=== PATIENT | female | born 1930 | race Caucasian/White ===

== ENCOUNTER 2019-09-29 06:11 | Day surgery (SDC) | payer MEDICARE ==
[~2019-09-29] VITALS: Ht 152.4 cm; Wt 52.0 kg
[~2019-09-29 06:11] MED LIST: ACET500 PO; ACYC800 PO; ALEN35 PO; AMIT25 PO; ASCO500 PO; ASPI81CH PO; ASPI81EC PO; ATOR40TA PO; CALCAVITD PO; CALCIUM 600 +1 EA11 PO; CEPH500 PO; CHOL10002 PO; CLOP75 PO; CRANBERRY450 MG PO; Cayenne450 MG PO; DIGESTIVE ENZY1 EACH PO; DOCU100 PO; ETOD400 PO; FERR325 PO; FLUT.05NI; FLUT110OIA INH; FORTICAL; Flonase 0.05% N16 GM; GABA100 PO; GABA300 PO; LACT10SY PO; LATA.005SO BOTHEYES; LEVSOD100 PO; LEVSOD75 PO; LISI10 PO; LISI5 PO; LOVAZA1 GM PO; Lovastatin20 MG PO; MACULAR VITAMI1 EACH PO; METO25 PO; METO25ER PO; METR500 PO; NORT25 PO; OMEP20ER PO; OXYB5 PO; POTA10T PO; PRAV40 PO; PROM25 PO; PROP30DR BOTHEYES; RANI150 PO; SERT100 PO; SULTRIDS PO; [UNRECOGNIZED DRUG - OTHER] PO
--- NOTE | 2019-09-29 09:51 | NUR ---
PT SITTING UP IN RECLINER FINISHING BREAKFAST WITH CALL LIGHT IN REACH. PT DENIES CHEST PAIN, OR ANY PAIN. RIGHT ULNAR SITE SOFT NON-TENDER WITH NO HEMATOMA AND NO PULSATILE BLEEDING AND WRIST BOARD IN PLACE.
--- NOTE | 2019-09-29 11:06 | NUR ---
FULL REPORT PROVIDED JAVON HOFFMANN FROM [facility] TO ASSUME CARE OF PT AFTER TRANSFER TO ROOM 360.
--- NOTE | 2019-09-29 11:20 | NUR ---
14 CC OF AIR REMOVED OVER 15 MIN FROM NOW DEFLATED RIGHT ULNAR TR BAND - NO HEMATOMA,NO PULSATILE BLEEDING SOFT NON-TENDER.
--- NOTE | 2019-09-29 11:29 | NUR ---
NO CHANGES TO RIGHT ULNAR DEFLATED TR BAND SITE - NO HEMATOMA, NO BLEEDING.
--- NOTE | 2019-09-29 12:16 | NUR ---
RIGHT ULNAR SITE SOFT NON-TENDER WITH NO HEMATOMA AND NO PULSATILBE BLEEDING. DEFLATED RIGHT TR BAND REMOVED AND POLYMEM PLACED OVER RIGHT ULNAR SITE WITH WRIST BOARD IN PLACE. PT EATING SOME CHEESE AND SANDWICH.
--- NOTE | 2019-09-29 12:44 | NUR ---
FULL REPORT PROVIDED MEAD CREW TO TRANSPORT PT TO [facility]. NO CHANGES TO RIGHT ULNAR SITE - WRIST BOARD IN PLACE.
== END 2019-09-29 12:45 | disposition short-term general hospital (02) ==
LOC: MHTC 06:11
PROC: B201YZZ Plain Radiography of Multiple Coronary Arteries using Other Contrast (ICD-10-PCS; principal; 2019-09-29)
PROC: 4A023N7 Measurement of Cardiac Sampling and Pressure, Left Heart, Percutaneous Approach (ICD-10-PCS; principal; 2019-09-29)
DX: I25.110 Atherosclerotic heart disease of native coronary artery with unstable angina pectoris (principal); I10 Essential (primary) hypertension; F32.9 Major depressive disorder, single episode, unspecified; E03.9 Hypothyroidism, unspecified; F17.210 Nicotine dependence, cigarettes, uncomplicated; Z79.82 Long term (current) use of aspirin; Z95.5 Presence of coronary angioplasty implant and graft; Z79.899 Other long term (current) drug therapy
CPT/HCPCS: 76937; 85347; 93458; 99152; 99153; C1769; C1894; J1644; J2250; J3010; J7030; Q9967

== ENCOUNTER 2019-10-07 18:43 | Inpatient (IN) | payer MEDICARE ==
[~2019-10-07] VITALS: Ht 152.4 cm; Wt 53.5 kg
[~2019-10-07 18:43] MED LIST changes: -ASCO500 PO; -Lovastatin20 MG PO; -METO25 PO
[2019-10-07] MEDS ORDERED: ACET325 PO (19:50)
[2019-10-07] MEDS ORDERED: AMLO10 PO (19:50)
[2019-10-07] MEDS ORDERED: HYDRA25 PO (19:50)
[2019-10-07] MEDS ORDERED: Plavix75 MG PO (19:51)
[2019-10-07] MEDS ORDERED: ATOR40TA PO (19:51)
[2019-10-07] MEDS ORDERED: LEVSOD75 PO (19:51)
[2019-10-07] MEDS ORDERED: CARV25 PO (19:51)
[2019-10-07] MEDS ORDERED: Aspir 8181 MG PO (19:51)
[2019-10-07] MEDS ORDERED: LATA.005SO BOTHEYES (19:52)
[2019-10-07 20:04] LABS: BASOPHILS ABSOLUTE AUTO 0.03 K/mm3 (0.00-0.23); BASOPHILS PERCENT AUTO 0 % (0-2); EOSINOPHILS ABSOLUTE AUTO 0.11 K/mm3 (0.00-0.68); EOSINOPHILS PERCENT AUTO 1 % (0-6); Hematocrit 31.6 % (33.0-51.0); Hemoglobin 9.7 g/dL (11.5-16.0); IMMATURE GRAN ABSOLUTE AUTO 0.09 K/mm3 (0.00-0.10); IMMATURE GRAN PERCENT AUTO 1 % (0-1); LYMPHOCYTES ABSOLUTE AUTO 1.08 K/mm3 (0.84-5.20); LYMPHOCYTES PERCENT AUTO 8 % (21-46); MONOCYTES PERCENT AUTO 7 % (4-13); Mean Corpuscular HGB 28.9 pg (26.0-34.0); Mean Corpuscular HGB Conc 30.7 g/dL (31.5-36.5); Mean Corpuscular Volume 94 fL (80-100); Mean Platelet Volume 10.6 fL (9.1-12.4); NEUTROPHILS ABSOLUTE AUTO 11.57 K/mm3 (1.96-9.15); NEUTROPHILS PERCENT AUTO 84 % (41-73); Platelet Count 373 K/mm3 (150-400); RDW Coefficient Variation 15.9 % (11.7-14.2); RDW Standard Deviation 54.4 fL (35.1-46.3); Red Blood Cell Count 3.36 M/mm3 (3.80-5.20); White Blood Cell Count 13.78 K/mm3 (4.00-11.30)
[2019-10-07] MEDS ORDERED: Prinivil10 MG PO (20:20)
[2019-10-07] MEDS ORDERED: METO25 PO (20:21)
[2019-10-07] MEDS ORDERED: Lovastatin20 MG PO (20:21)
[2019-10-07 20:27] LABS: Albumin/Globulin Ratio 0.7 (0.8-1.8); Bilirubin, Total 0.3 mg/dL (0.1-1.0); Bun/Creatinine Ratio 26.3 (12.0-20.0); Calcium, Blood 9.7 mg/dL (8.5-10.1); Creatinine, Blood 1.52 mg/dL (0.40-1.00); Globulin, Blood 4.5 g/dL (2.2-4.0); Potassium, Blood 5.3 mmol/L (3.5-5.5); Total Protein, Blood 7.5 g/dL (6.4-8.2)
[2019-10-07 20:39] LABS: Troponin I 20.1 ng/mL (0.000-0.040)
[2019-10-07 22:19] LABS: Creatine Kinase MB 2.3 ng/mL (0.0-3.6)
[2019-10-07 23:04] LABS: Percent Saturation 12.1 % (15.0-50.0)
--- NOTE | 2019-10-07 23:30 | NUR ---
PT TO ICU 4 VIA GURNEY WITH [facility] RN, PT ALERT AND ORIENTED TO SELF, LOCATION, EVENT AND FOLLOWING DIRECTIONS. O2 SATURATIONS >93% ON 3L PER NC, PT ON RA AT HOME. MONITOR SHOWS SINUS GABBY, HR 38-50'S, PT DENIES CP AND SOB. TR BAND TO R ULNAR, SITE SOFT, NONTENDER, GOOD CAP REFILL IN DISTAL EXTREMITY, NO BLEEDING OR HEMATOMA NOTED. PT RECEIVED PLAVIX AND ASPIRIN PER EXEC. CREATIVE DIRECTOR REPORT, HEPARIN SC ADMINISTERED. PREVIOUS ANGIOGRAM ACCESS SITE TO R GROIN, SIGNIFICANT BRUISING NOTED, SMALL HEMATOMA AT INSERTION SITE, NON TENDER, DR FLEMING AWARE. DR BARAJAS IN TO SEE PT, SEE NEW ORDERS, NOTIFIED OF HR, PT ASYMPTOMATIC, DR BARAJAS REPORTED CHANGE IN DOSAGE TO HOME MEDICATIONS TO IMPROVE HR, CODE STATUS DISCUSSESD WITH PT, ORDER UPDATED AND DNR BAND PLACED. PT UP TO BSC, 1 PERSON ASSIST, DENIES DIZZINESS OR SOB. HISTORY OF CURRENT ILLNESS PT AND SON (FANNY) REPORT THAT PT WAS SENT TO [facility] APPROX 1 WEEK AGO, STENTS PLACED AT THAT TIME. SINCE DISCHARGE FROM [facility] ON 10/02, PT HAS HAD EXTREME SOB WITH EXERTION MAKING IT DIFFICULT TO GET AROUND HER HOME. PT HAS A LIST OF HOME MEDICATIONS, HAS DIFFICULTY IDENTIFYING WHEN SHE TAKES EACH MEDICATION, BUT STS SHE TAKES THEM DAILY.
[2019-10-07] MEDS ORDERED: Oyster Shell C500 MG PO (23:39)
[2019-10-07] MEDS ORDERED: ASCO500 PO (23:39)
[2019-10-07] MEDS ORDERED: EYE BOTHEYES (23:40)
[2019-10-08 03:15] LABS: BASOPHILS ABSOLUTE AUTO 0.04 K/mm3 (0.00-0.23); BASOPHILS PERCENT AUTO 0 % (0-2); EOSINOPHILS ABSOLUTE AUTO 0.12 K/mm3 (0.00-0.68); EOSINOPHILS PERCENT AUTO 1 % (0-6); Hematocrit 26.6 % (33.0-51.0); Hemoglobin 8.2 g/dL (11.5-16.0); IMMATURE GRAN ABSOLUTE AUTO 0.04 K/mm3 (0.00-0.10); IMMATURE GRAN PERCENT AUTO 0 % (0-1); LYMPHOCYTES ABSOLUTE AUTO 1.34 K/mm3 (0.84-5.20); LYMPHOCYTES PERCENT AUTO 13 % (21-46); MONOCYTES ABSOLUTE AUTO 0.89 K/mm3 (0.16-1.47); MONOCYTES PERCENT AUTO 8 % (4-13); Mean Corpuscular HGB 28.8 pg (26.0-34.0); Mean Corpuscular HGB Conc 30.8 g/dL (31.5-36.5); Mean Corpuscular Volume 93 fL (80-100); Mean Platelet Volume 10.6 fL (9.1-12.4); NEUTROPHILS ABSOLUTE AUTO 8.26 K/mm3 (1.96-9.15); NEUTROPHILS PERCENT AUTO 77 % (41-73); Platelet Count 319 K/mm3 (150-400); RDW Coefficient Variation 15.8 % (11.7-14.2); RDW Standard Deviation 53.8 fL (35.1-46.3); Red Blood Cell Count 2.85 M/mm3 (3.80-5.20); White Blood Cell Count 10.69 K/mm3 (4.00-11.30)
[2019-10-08 03:31] LABS: Bun/Creatinine Ratio 30.1 (12.0-20.0); Calcium, Blood 8.9 mg/dL (8.5-10.1); Creatinine, Blood 1.46 mg/dL (0.40-1.00)
--- NOTE | 2019-10-08 05:39 | NUR ---
SHIFT SUMMARY NO ACUTE CHANGES T/O NIGHT. PT RESTED, AROUSES TO VERBAL SITMULI, ALERT AND ORIENTED TO SELF, PLACE, EVENT AND FOLLOWING DIRECTIONS. R ULNAR SITE REMAINS SOFT AND NONTENDER, SMALL HEMATOMA NOTED AT INSERTION SITE WHEN TR BAND WAS REMOVED, WRIST IMMOBILIZER IN PLACE. PT REMAINS BRADYCARDIC, HR 30'S-50'S, PT DENIES CP. PT UP TO BSC, SIGNIFICANT SOB NOTED W/O DECREASE IN O2 SATURATIONS, NOT ABLE TO SPEAK IN FULL SENTENCES, VERY SLOW TO RECOVER, PRN BREATHING TREATMENT CURRENTLY BEING ADMINISTERED. R GROIN SITE REMAINS UNCHANGED. PT CALM AND COOPERATIVE, CALL LIGHT WITHIN REACH.
--- NOTE | 2019-10-08 10:00 | NUR ---
CARE ASSUMED REPORT RECEIVED, CARE ASSUMED AT 0700 FROM AJVON TORRES. PT ASLEEP, AROUSES EASILY FOR ASSESSMENT. VITALS STABLE. PT TITRATED TO 1 LPM NASAL CANNULA FOR SAT IN 90'S. PT DOES GET SHORT OF BREATH WITH TALKING AND ANY MOVEMENTS. HR 40'S. PT DENIES CHEST PAIN OR DIZZINESS. SEE SHIFT ASSESSMENT. PT TO CT AND BACK TO ROOM TO RULE OUT BLEED PT'S H&H DROPPING. NO NEW SIGNS OF BLEEDING. PT ALSO WORKED WITH PHYSICAL THERAPY THIS MORNING AND TOLERATES USING FWW TO STAND, TRANSFER AND WALK TO A RECLINER, BEDSIDE COMMODE AND BACK TO BED. PT HAS RECEIVED MULTIPLE PHONE CALLS FROM FAMILY, AND IS CALLING APPROPRIATELY FOR NEEDS.
--- NOTE | 2019-10-08 12:09 | NUR ---
UPDATE - RESPIRATORY STATUS OVER PREVIOUS HOUR, PT MUCH MORE SHORT OF BREATH AT REST. RR 24-28. 02 SAT 90'S ON 1 LPM. WHEEZING AUDIBLE WITHOUT AUSCULTATION, BUT LUNGS MOSTLY DIM THROUGHOUT. DR. ROGEL IN ROOM FOR ASSESSMENT. NEW ORDER FOR LASIX, CPAP/BIPAP PROTOCOL AND BALLESTEROS FOR STRICT I/O. PT REFUSING CPAP/BIPAP AT THIS TIME, BUT AGREES TO RESP TREATMENT BY DARIEL RT. REFUSES BALLESTEROS. PT ABLE TO TURN TO BE PLACED ON BEDPAN. LASIX GIVEN.
--- NOTE | 2019-10-08 13:08 | NUR ---
UPDATE PT PLACED ON M-SERIES BIPAP 08/11 BY RT DARIEL. AT THIS TIME, RESP RATE MUCH IMPROVED TO 16-20'S. PT CALM, DENIES SHORTNESS OF BREATH.
--- NOTE | 2019-10-08 14:16 | NUR ---
Echocardiogram using 0.45ml of Definity contrtast performed.
[2019-10-08 16:23] LABS: Hematocrit 27.6 % (33.0-51.0); Hemoglobin 8.6 g/dL (11.5-16.0)
--- NOTE | 2019-10-08 18:51 | NUR ---
SUMMARY SINCE PREVIOUS NOTE, PT HAS WORN BIPAP MAJORITY OF AFTERNOON. FIRST ATTEMPT AT BREAK DID NOT GO WELL WITH INCREASED RESPIRATORY RATE. HOWEVER, THIS EVENING PT OFF BIPAP FOR PAST HOUR AND ABLE TO DRINK AND EAT DINNER WITHOUT DIFFICULTY. PT STILL TACHYPNEIC WITH EXERTION BUT REPORTS FEELING BETTER THAN EARLIER. PT HAS HAD LARGE AMOUNT OF URINE OUTPUT, MOSTLY INCONTINENT. CONTINUES TO DECLINE INSERTION OF BALLESTEROS CATHETER. STILL NO BOWEL MOVEMENT TO SEND TO LAB. PT ABLE TO ASSIST WITH REPOSITIONING AND CHANGING. PT HAS NOT BEEN OUT OF BED AGAIN SINCE PT BECAME SO SHORT OF BREATH EARLY THIS AFTERNOON. BP STABLE. HR CONTINUES IN 50'S-60'S. PT AFEBRILE. PT CALLING APPROPRIATELY FOR NEEDS. SON AT BEDSIDE THIS EVENING.
--- NOTE | 2019-10-08 19:22 | NUR ---
REPORT TO JAVON TORRES TO ASSUME CARE
--- NOTE | 2019-10-08 20:30 | NUR ---
ASSUMPTION OF CARE ASSUMED CARE OF PT @ 1900, PT AWAKE IN BED, ALERT AND ORIENTED TO SELF, PLACE, EVENT, AND FOLLOWING DIRECTIONS. PT STS SHE FEELS MILDLY SOB, BUT IMPROVED FROM EARLIER IN THE DAY, PT ON 4L PER NC WITH OXYGEN SATURATIONS>95%. MONITOR SHOWS SINUS RHYTHM WITH HR 40'S-50'S, BP STABLE, DENIES CP. R ULNAR SITE C/D/I, SOFT AND NONTENDER, WRIST IMMOBILIZER IN PLACE. R GROIN SITE REMAINS UNCHANGED FROM PREVIOUS SHIFT. PT TOLERATING PO INTAKE, SWALLOWS PILLS WHOLE. PT UP TO BSC WITH SBA, NO INCREASE IN SOB, MODERATE WEAKNESS NOTED, OVERALL PT TOLERATED WELL. CALL LIGHT WITHIN REACH.
--- NOTE | 2019-10-09 05:29 | NUR ---
SHIFT SUMMARY PT SLEPT WELL T/O NIGHT, REMAINS ALERT AND ORIENTED WHILE AWAKE, PLEASANT AND COOPERATIVE. OXYGEN PER NC DECREASED TO 2L, ATTEMPTED RA AND O2 SATURATIONS DECREASED TO 87%. MONITOR SHOWS SINUS RHYTHM, HR IMPROVED TO 50-60'S BPM, BP STABLE. R ULNAR AND R GROIN SITE REMAIN STABLE. PT UP TO BSC x3 THIS SHIFT, STRENGTH SEEMS TO BE IMPROVING, SOB DECREASING, SOME INCONTINENT VOIDS IN ATTENDS. PT DENIES NEED FOR BM, STS DOES NOT FEEL CONSTIPATED, BUT STS SHE GENERALLY HAS BM EVERYDAY. PT VERBALIZES DESIRE TO BE DC'D HOME.
--- NOTE | 2019-10-09 07:08 | NUR ---
CARE ASSUMED REPORT RECEIVED, CARE ASSUMED AT 0700 FROM JAVON TORRES. PT UP TO BEDSIDE COMMODE AND TOLERATES WELL. SHORT OF BREATH WITH EXERTION AND WHEEZY BUT RECOVERS QUICKLY ON 2 LPM NASAL CANNULA ONCE BACK TO BED. PT DENIES CHEST PAIN OR DIZZINESS. VITALS STABLE. SEE SHIFT ASSESSMENT. PT AGREES TO CALL FOR NEEDS.
[2019-10-09 11:01] LABS: BASOPHILS ABSOLUTE AUTO 0.05 K/mm3 (0.00-0.23); BASOPHILS PERCENT AUTO 1 % (0-2); EOSINOPHILS ABSOLUTE AUTO 0.16 K/mm3 (0.00-0.68); EOSINOPHILS PERCENT AUTO 2 % (0-6); Hematocrit 27.2 % (33.0-51.0); Hemoglobin 8.7 g/dL (11.5-16.0); IMMATURE GRAN ABSOLUTE AUTO 0.05 K/mm3 (0.00-0.10); IMMATURE GRAN PERCENT AUTO 1 % (0-1); LYMPHOCYTES ABSOLUTE AUTO 1.47 K/mm3 (0.84-5.20); LYMPHOCYTES PERCENT AUTO 13 % (21-46); MONOCYTES ABSOLUTE AUTO 1.03 K/mm3 (0.16-1.47); MONOCYTES PERCENT AUTO 9 % (4-13); Mean Corpuscular HGB 29.4 pg (26.0-34.0); Mean Corpuscular Volume 92 fL (80-100); NEUTROPHILS ABSOLUTE AUTO 8.17 K/mm3 (1.96-9.15); NEUTROPHILS PERCENT AUTO 75 % (41-73); Platelet Count 356 K/mm3 (150-400); RDW Coefficient Variation 15.7 % (11.7-14.2); RDW Standard Deviation 52.3 fL (35.1-46.3); Red Blood Cell Count 2.96 M/mm3 (3.80-5.20); White Blood Cell Count 10.93 K/mm3 (4.00-11.30)
[2019-10-09 11:16] LABS: Bun/Creatinine Ratio 31.3 (12.0-20.0); Calcium, Blood 8.6 mg/dL (8.5-10.1); Creatinine, Blood 1.34 mg/dL (0.40-1.00); Potassium, Blood 4.1 mmol/L (3.5-5.5)
--- NOTE | 2019-10-09 17:05 | NUR ---
Per admit trigger, I met with Mrs. Thompson to offer spiritual/emotional support. She is non-sikh, but appeared to benefit from being heard and understood. She expressed frustration with chronic illness and says she is "tired of hospitals." She feels she is improving and will be able to return home soon. She has good family support and did not express concerns. I will remain available.
--- NOTE | 2019-10-09 18:52 | NUR ---
SUMMARY VITALS STABLE THROUGHOUT SHIFT. ABLE TO TITRATE PT TO ROOM AIR. PT HAS NOT REQUIRED BIPAP. PT HAS HAD ACTIVE DAY, WORKED WITH BOTH PT AND OT, AND HAS BEEN UP AND DOWN TO THE BEDSIDE COMMODE FREQUENTLY. PT HAS EATEN MAJORITY OF MEALS. CHANGED TO MEDICAL FLOOR WITH TELEMETRY STATUS. PT HAS CALLED APPROPRIATELY FOR NEEDS. SON AT BEDSIDE A FEW TIMES THROUGHOUT THE DAY, REQUESTING TO SPEAK WITH CASE MANAGEMENT TO DISCUSS ARRANGING A CAREGIVER FOR THE PATIENT AT HOME. OLAMIDE IN CASE MANAGEMENT UPDATED AND AGREEABLE TO BE IN COMMUNICATION WITH SON.
--- NOTE | 2019-10-09 19:28 | NUR ---
REPORT TO JOSE R, RN TO ASSUME CARE
--- NOTE | 2019-10-09 19:49 | NUR ---
ASSUME CARE PT IN BED, ALERT AND ORIENTED. VSS. GABBY IN 50S, BP WNL. AFEBRILE. PULSES PALPABLE THROUGHOUT. LUNGS CTAB. ON RA WITH SATS ABOVE 92%.
[2019-10-10 05:23] LABS: BASOPHILS ABSOLUTE AUTO 0.05 K/mm3 (0.00-0.23); BASOPHILS PERCENT AUTO 1 % (0-2); EOSINOPHILS PERCENT AUTO 4 % (0-6); Hematocrit 25.7 % (33.0-51.0); Hemoglobin 8.1 g/dL (11.5-16.0); IMMATURE GRAN ABSOLUTE AUTO 0.05 K/mm3 (0.00-0.10); IMMATURE GRAN PERCENT AUTO 1 % (0-1); LYMPHOCYTES ABSOLUTE AUTO 1.79 K/mm3 (0.84-5.20); LYMPHOCYTES PERCENT AUTO 21 % (21-46); MONOCYTES ABSOLUTE AUTO 0.79 K/mm3 (0.16-1.47); MONOCYTES PERCENT AUTO 9 % (4-13); Mean Corpuscular HGB 28.5 pg (26.0-34.0); Mean Corpuscular HGB Conc 31.5 g/dL (31.5-36.5); Mean Corpuscular Volume 91 fL (80-100); NEUTROPHILS ABSOLUTE AUTO 5.68 K/mm3 (1.96-9.15); NEUTROPHILS PERCENT AUTO 66 % (41-73); Platelet Count 355 K/mm3 (150-400); RDW Coefficient Variation 15.4 % (11.7-14.2); RDW Standard Deviation 50.6 fL (35.1-46.3); Red Blood Cell Count 2.84 M/mm3 (3.80-5.20); White Blood Cell Count 8.66 K/mm3 (4.00-11.30)
[2019-10-10 05:50] LABS: Bun/Creatinine Ratio 28.7 (12.0-20.0); Calcium, Blood 8.4 mg/dL (8.5-10.1); Creatinine, Blood 1.29 mg/dL (0.40-1.00); Potassium, Blood 4.3 mmol/L (3.5-5.5)
--- NOTE | 2019-10-10 07:29 | NUR ---
10/10/19 0600 HEART MONITOR STABLE AT SINUS GABBY IN HIGH 50'S TO SR IN THE 60'S. C/O SOB WITH WALKING TO BATHROOM BUT RESOLVES WITH REST. SLEPT ON AND OFF. RT THIGH BRUISING UNCHANGED FROM TIME OF TRANSFER. VITALS STABLE.
--- NOTE | 2019-10-10 18:01 | NUR ---
PT ALERT AND ORIENTED THROUGHOUT THIS SHIFT. PT WORKED WITH PT, WALKING IN THE CHAVES, THIS SHIFT. PT UP WITH STANDBY ASSIST TO THE BATHROOM. PT USES CALL LIGHT APPROPRIATELY. PT CURRENTLY EATING DINNER, NO FURTHER NEEDS AT THIS TIME.
[2019-10-11 03:49] LABS: Stool Occult Blood Guaiac 1 Pos (Neg)
--- NOTE | 2019-10-11 05:33 | NUR ---
10/11/19 0530 AWAKENED FOR VITALS AND AM MEDS. STATES SHE SLEPT BETTER LAST NIGHT. VITALS STABLE. DENIES SOB, OR OTHER PROBLEMS. REQUESTED COFFEE AND WATCHING TV NOW. RN ENCOURAGED PT TO DRINK MORE.
[2019-10-11 05:38] LABS: BASOPHILS ABSOLUTE AUTO 0.05 K/mm3 (0.00-0.23); BASOPHILS PERCENT AUTO 1 % (0-2); EOSINOPHILS ABSOLUTE AUTO 0.34 K/mm3 (0.00-0.68); EOSINOPHILS PERCENT AUTO 5 % (0-6); Hematocrit 25.8 % (33.0-51.0); Hemoglobin 8.2 g/dL (11.5-16.0); IMMATURE GRAN ABSOLUTE AUTO 0.04 K/mm3 (0.00-0.10); IMMATURE GRAN PERCENT AUTO 1 % (0-1); LYMPHOCYTES ABSOLUTE AUTO 1.61 K/mm3 (0.84-5.20); LYMPHOCYTES PERCENT AUTO 21 % (21-46); MONOCYTES ABSOLUTE AUTO 0.72 K/mm3 (0.16-1.47); MONOCYTES PERCENT AUTO 10 % (4-13); Mean Corpuscular HGB Conc 31.8 g/dL (31.5-36.5); Mean Corpuscular Volume 91 fL (80-100); Mean Platelet Volume 10.1 fL (9.1-12.4); NEUTROPHILS ABSOLUTE AUTO 4.78 K/mm3 (1.96-9.15); NEUTROPHILS PERCENT AUTO 63 % (41-73); Platelet Count 373 K/mm3 (150-400); RDW Coefficient Variation 15.3 % (11.7-14.2); RDW Standard Deviation 50.6 fL (35.1-46.3); Red Blood Cell Count 2.83 M/mm3 (3.80-5.20); White Blood Cell Count 7.54 K/mm3 (4.00-11.30)
[2019-10-11 06:02] LABS: Albumin, Blood 2.5 g/dL (3.4-5.0); Anion Gap 5 mmol/L (6-16); Blood Urea Nitrogen 32 mg/dL (8-24); Bun/Creatinine Ratio 25.4 (12.0-20.0); CO2, Blood 24 mmol/L (21-32); Calcium, Blood 8.6 mg/dL (8.5-10.1); Chloride, Blood 112 mmol/L (98-108); Creatinine, Blood 1.26 mg/dL (0.40-1.00); Glomerular Filtration Rate 43 (60-); Glucose, Blood 89 mg/dL (70-99); Phosphorus, Blood 3.1 mg/dL (2.5-4.9); Potassium, Blood 4.2 mmol/L (3.5-5.5); Sodium, Blood 141 mmol/L (136-145)
--- NOTE | 2019-10-11 16:25 | NUR ---
PT ALERT AND ORIENTED THROUGHOUT THIS SHIFT. PT WORKED WITH P/T AND OT THIS SHIFT. PT INDEPENDENT IN THE ROOM. PT RESTING IN BED FOR MOST OF THIS SHIFT. PT CURRENTLY RESTING IN BED AFTER WORKING WITH PT.
--- NOTE | 2019-10-12 04:58 | NUR ---
SHIFT SUMMARY PT HAD MOSTLY UNEVENTFUL NIGHT. PER REPORT PT'S TELE WAS D/C'D THE SHIFT PRIOR BUT THERE WAS NO ORDER TO D/C TELE AND NOTHING NOTED IN DOCTOR NOTES. TELE PLACED AGAIN ON PT. PT SBRADY W/ PAC'S AND BBB AT 53. NO S/S OF BLEEDING NOTED THROUGHOUT THE NIGHT. PT HAD NO COMPLAINTS OF PAIN OR SOB. ON RA. IV TO LEFT AC LEAKING SO THIS NURSE PLACED NEW IV IN LEFT FOREARM. OTHERWISE NO ACUTE CHANGES. VITAL SIGNS STABLE. WILL CONTINUE TO MONITOR.
[2019-10-12 05:34] LABS: BASOPHILS ABSOLUTE AUTO 0.04 K/mm3 (0.00-0.23); BASOPHILS PERCENT AUTO 1 % (0-2); EOSINOPHILS PERCENT AUTO 4 % (0-6); Hematocrit 26.5 % (33.0-51.0); Hemoglobin 8.3 g/dL (11.5-16.0); IMMATURE GRAN ABSOLUTE AUTO 0.04 K/mm3 (0.00-0.10); IMMATURE GRAN PERCENT AUTO 1 % (0-1); LYMPHOCYTES ABSOLUTE AUTO 1.83 K/mm3 (0.84-5.20); LYMPHOCYTES PERCENT AUTO 23 % (21-46); MONOCYTES ABSOLUTE AUTO 0.72 K/mm3 (0.16-1.47); MONOCYTES PERCENT AUTO 9 % (4-13); Mean Corpuscular HGB 28.3 pg (26.0-34.0); Mean Corpuscular HGB Conc 31.3 g/dL (31.5-36.5); Mean Corpuscular Volume 90 fL (80-100); Mean Platelet Volume 9.7 fL (9.1-12.4); NEUTROPHILS ABSOLUTE AUTO 4.89 K/mm3 (1.96-9.15); NEUTROPHILS PERCENT AUTO 63 % (41-73); Platelet Count 371 K/mm3 (150-400); RDW Coefficient Variation 15.5 % (11.7-14.2); RDW Standard Deviation 50.2 fL (35.1-46.3); Red Blood Cell Count 2.93 M/mm3 (3.80-5.20); White Blood Cell Count 7.82 K/mm3 (4.00-11.30)
[2019-10-12 05:57] LABS: Calcium, Blood 8.7 mg/dL (8.5-10.1); Creatinine, Blood 1.48 mg/dL (0.40-1.00); Potassium, Blood 4.3 mmol/L (3.5-5.5)
--- NOTE | 2019-10-12 16:03 | NUR ---
10/12/19 1603 Amada Weeks MAC CASE WITH DR. HAYDEN
--- NOTE | 2019-10-12 17:39 | NUR ---
Shift Summary A/Ox3, pleasant and cooperative. Pt had EGD this afternoon. SBA to bathroom, able to make needs known. Tele: SB 54. Both doses of Coreg was held today due to VS outside of parameters. Pt switched to Full liquid diet per Dr. Augustine. Denies pain and SOB. No signs of bleed, no bowel movement this shift. No acute concerns, will continue to monitor.
--- NOTE | 2019-10-13 04:28 | NUR ---
SHIFT SUMMARY PT HAS RESTED OFF AND ON THIS SHIFT. SHE HAS DENIED NEEDS FOR MOST OF THE NIGHT. NO S/S OF BLEEDING. PROTONIX GTT INFUSING. POST OP VITALS STABLE. PT OOB WITH 1 PA TO THE BATHROOM. STEADY ON FEET. PT HAS DENIED CHEST PAIN OR ANY DISCOMFORT. NO ACUTE CHANGES. BED IN LOWEST POSITION, CALL LIGHT WITHIN REACH. WILL CONTINUE TO MONITOR AND REPORT TO ONCOMING RN.
[2019-10-13 05:23] LABS: BASOPHILS ABSOLUTE AUTO 0.04 K/mm3 (0.00-0.23); BASOPHILS PERCENT AUTO 1 % (0-2); EOSINOPHILS ABSOLUTE AUTO 0.25 K/mm3 (0.00-0.68); EOSINOPHILS PERCENT AUTO 4 % (0-6); Hematocrit 28.1 % (33.0-51.0); Hemoglobin 8.9 g/dL (11.5-16.0); IMMATURE GRAN ABSOLUTE AUTO 0.04 K/mm3 (0.00-0.10); IMMATURE GRAN PERCENT AUTO 1 % (0-1); LYMPHOCYTES ABSOLUTE AUTO 1.62 K/mm3 (0.84-5.20); LYMPHOCYTES PERCENT AUTO 24 % (21-46); MONOCYTES ABSOLUTE AUTO 0.59 K/mm3 (0.16-1.47); MONOCYTES PERCENT AUTO 9 % (4-13); Mean Corpuscular HGB 28.6 pg (26.0-34.0); Mean Corpuscular HGB Conc 31.7 g/dL (31.5-36.5); Mean Corpuscular Volume 90 fL (80-100); Mean Platelet Volume 9.5 fL (9.1-12.4); NEUTROPHILS ABSOLUTE AUTO 4.16 K/mm3 (1.96-9.15); NEUTROPHILS PERCENT AUTO 62 % (41-73); Platelet Count 381 K/mm3 (150-400); RDW Coefficient Variation 15.3 % (11.7-14.2); Red Blood Cell Count 3.11 M/mm3 (3.80-5.20)
[2019-10-13 05:50] LABS: Albumin, Blood 2.7 g/dL (3.4-5.0); Anion Gap 6 mmol/L (6-16); Blood Urea Nitrogen 25 mg/dL (8-24); Bun/Creatinine Ratio 20.8 (12.0-20.0); CO2, Blood 24 mmol/L (21-32); Calcium, Blood 8.7 mg/dL (8.5-10.1); Chloride, Blood 112 mmol/L (98-108); Glomerular Filtration Rate 45 (60-); Glucose, Blood 84 mg/dL (70-99); Phosphorus, Blood 2.9 mg/dL (2.5-4.9); Potassium, Blood 4.4 mmol/L (3.5-5.5); Sodium, Blood 142 mmol/L (136-145)
[2019-10-13] MEDS ORDERED: CARV3.125 PO (14:20)
[2019-10-13] MEDS ORDERED: FERSU300 PO (14:21)
[2019-10-13] MEDS ORDERED: PANT40 PO (14:22)
[2019-10-13] MEDS ORDERED: FURO40 PO (14:23)
--- NOTE | 2019-10-13 15:42 | NUR ---
Discharge Summary A/Ox3, patient had no signs of bleeding, denies SOB, pain, dyspnea. SBA in room, assisted with dressing. Discharging to home, personal vehicle as transportation home, escorted out by PHARMACY CARE COORDINATOR via w/c. Discharge instructions reviewed with patient and friend at bedside. Meds faxed to [facility]. IVs removed, both WNL. Patient had no questions at this time. Personal belongings bagged by patient and friend, sent home with patient. Tele removed and sent back to PCU.
== END 2019-10-13 15:45 | disposition home or self-care (01) | DRG 280 ==
LOC: ER 18:43 → ICUE 19:45 → ICUW 19:45 → MEDS 19:45 → ICUE 20:54 → MEDS 10-09 23:13
PROVIDERS: Internal Medicine; Internal Medicine Gastroenterology; Internal Medicine Interventional Cardiology; Physician Assistant; ADMIT Family Medicine
PROC: 4A023N7 Measurement of Cardiac Sampling and Pressure, Left Heart, Percutaneous Approach (ICD-10-PCS; principal; 2019-10-07)
PROC: B2011ZZ Plain Radiography of Multiple Coronary Arteries using Low Osmolar Contrast (ICD-10-PCS; 2019-10-07)
PROC: 0W3P8ZZ Control Bleeding in Gastrointestinal Tract, Via Natural or Artificial Opening Endoscopic (ICD-10-PCS; 2019-10-12)
DX: I21.4 Non-ST elevation (NSTEMI) myocardial infarction (principal); J96.01 Acute respiratory failure with hypoxia; I50.31 Acute diastolic (congestive) heart failure; K55.21 Angiodysplasia of colon with hemorrhage; N17.9 Acute kidney failure, unspecified; J44.1 Chronic obstructive pulmonary disease with (acute) exacerbation; I13.0 Hypertensive heart and chronic kidney disease with heart failure and stage 1 through stage 4 chronic kidney disease, or unspecified chronic kidney disease; Z79.02 Long term (current) use of antithrombotics/antiplatelets; Z87.891 Personal history of nicotine dependence; N18.3 Chronic kidney disease, stage 3 (moderate); I25.10 Atherosclerotic heart disease of native coronary artery without angina pectoris; H40.9 Unspecified glaucoma
CPT/HCPCS: 36415; 71045; 74176; 76937; 80048; 80053; 80069; 82272; 82550; 82553; 82607; 82728; 82746; 83540; 83550; 83880; 84145; 84484; 85014; 85018; 85025; 85347; 93005; 93010; 93458; 94640; 94660; 94760; 97110; 97112; 97116; 97162; 97166; 97530; 97535; 99152; 99153; 99285-25; C1769; C1887; C1894; C8929; C9113; J0456; J0696; J1644; J1940; J2704; J7030; J7050; J7120; Q9957; Q9967

== ENCOUNTER → 2019-10-30 | Outpatient (CLI) | payer MEDICARE ==
[~2019-10-30] MED LIST changes: +ACET325 PO; +AMLO10 PO; +ASCO500 PO; +Aspir 8181 MG PO; +CARV25 PO; +CARV3.125 PO; +EYE BOTHEYES; +FERSU300 PO; +FURO40 PO; +HYDRA25 PO; +Lovastatin20 MG PO; +METO25 PO; +Oyster Shell C500 MG PO; +PANT40 PO; +Plavix75 MG PO; +Prinivil10 MG PO
[2019-10-30 19:08] LABS: BASOPHILS ABSOLUTE AUTO 0.06 K/mm3 (0.00-0.23); BASOPHILS PERCENT AUTO 1 % (0-2); EOSINOPHILS ABSOLUTE AUTO 0.34 K/mm3 (0.00-0.68); EOSINOPHILS PERCENT AUTO 5 % (0-6); Hematocrit 24.3 % (33.0-51.0); Hemoglobin 8.8 g/dL (11.5-16.0); IMMATURE GRAN ABSOLUTE AUTO 0.03 K/mm3 (0.00-0.10); IMMATURE GRAN PERCENT AUTO 1 % (0-1); LYMPHOCYTES ABSOLUTE AUTO 1.48 K/mm3 (0.84-5.20); LYMPHOCYTES PERCENT AUTO 23 % (21-46); MONOCYTES PERCENT AUTO 8 % (4-13); Mean Corpuscular HGB 35.2 pg (26.0-34.0); Mean Corpuscular HGB Conc 36.2 g/dL (31.5-36.5); Mean Corpuscular Volume 97 fL (80-100); Mean Platelet Volume 10.3 fL (9.1-12.4); NEUTROPHILS ABSOLUTE AUTO 4.09 K/mm3 (1.96-9.15); NEUTROPHILS PERCENT AUTO 63 % (41-73); Platelet Count 300 K/mm3 (150-400); RDW Coefficient Variation 17.6 % (11.7-14.2); RDW Standard Deviation 60.8 fL (35.1-46.3)
== END ==
LOC: LAB SHORT 11:00
PROVIDERS: Physician Assistant
DX: D64.9 Anemia, unspecified (principal)
CPT/HCPCS: 36415; 85025

== ENCOUNTER 2019-11-13 15:44 | Emergency (ER) | payer MEDICARE ==
[~2019-11-13] VITALS: Ht 152.4 cm; Wt 49.9 kg
[2019-11-13 16:54] LABS: BASOPHILS ABSOLUTE AUTO 0.05 K/mm3 (0.00-0.23); BASOPHILS PERCENT AUTO 1 % (0-2); EOSINOPHILS ABSOLUTE AUTO 0.38 K/mm3 (0.00-0.68); EOSINOPHILS PERCENT AUTO 4 % (0-6); Hematocrit 24.9 % (33.0-51.0); Hemoglobin 7.8 g/dL (11.5-16.0); IMMATURE GRAN ABSOLUTE AUTO 0.04 K/mm3 (0.00-0.10); IMMATURE GRAN PERCENT AUTO 0 % (0-1); LYMPHOCYTES ABSOLUTE AUTO 1.44 K/mm3 (0.84-5.20); LYMPHOCYTES PERCENT AUTO 14 % (21-46); MONOCYTES ABSOLUTE AUTO 0.81 K/mm3 (0.16-1.47); MONOCYTES PERCENT AUTO 8 % (4-13); Mean Corpuscular HGB 29.5 pg (26.0-34.0); Mean Corpuscular HGB Conc 31.3 g/dL (31.5-36.5); Mean Corpuscular Volume 94 fL (80-100); Mean Platelet Volume 10.6 fL (9.1-12.4); NEUTROPHILS ABSOLUTE AUTO 7.26 K/mm3 (1.96-9.15); NEUTROPHILS PERCENT AUTO 73 % (41-73); Platelet Count 297 K/mm3 (150-400); RDW Coefficient Variation 15.9 % (11.7-14.2); RDW Standard Deviation 53.9 fL (35.1-46.3); Red Blood Cell Count 2.64 M/mm3 (3.80-5.20); White Blood Cell Count 9.98 K/mm3 (4.00-11.30)
[2019-11-13 16:56] LABS: Source, Urine Clean Catch
[2019-11-13 17:08] LABS: Bilirubin, Urine Neg (Neg); Blood, Urine 1+ (Neg); Glucose Qualitative, Urine Neg (Neg); Ketones, Urine Neg (Neg); Leukocyte Esterase, Urine 2+ (Neg); Nitrite, Urine Neg (Neg); Protein, Urine 2+ (Neg); Specific Gravity, Urine 1.015 (1.003-1.022); Urobilinogen, Urine NORM (Normal)
[2019-11-13 17:13] LABS: Albumin, Blood 3.2 g/dL (3.4-5.0); Albumin/Globulin Ratio 0.8 (0.8-1.8); Bilirubin, Total 0.2 mg/dL (0.1-1.0); Bun/Creatinine Ratio 30.1 (12.0-20.0); Calcium, Blood 8.9 mg/dL (8.5-10.1); Creatinine, Blood 1.56 mg/dL (0.40-1.00); Globulin, Blood 3.9 g/dL (2.2-4.0); Potassium, Blood 3.5 mmol/L (3.5-5.5); Total Protein, Blood 7.1 g/dL (6.4-8.2)
[2019-11-13 17:22] LABS: Appearance, Urine Hazy (Clear); Color, Urine Pale Yellow (P-Yellow)
[2019-11-13 17:23] LABS: Bacteria Few /hpf; Squamous Epithelial Cells Few /hpf (Few)
== END 2019-11-13 22:44 | disposition home or self-care (01) ==
LOC: ER 15:44
PROVIDERS: Physician Assistant
DX: D64.9 Anemia, unspecified (principal); N18.9 Chronic kidney disease, unspecified; K31.819 Angiodysplasia of stomach and duodenum without bleeding; I25.2 Old myocardial infarction; E03.9 Hypothyroidism, unspecified; F32.9 Major depressive disorder, single episode, unspecified; Z79.899 Other long term (current) drug therapy
CPT/HCPCS: 36415; 71045; 80053; 81001; 82272; 83690; 83880; 84484; 85025; 87077; 87086; 87186; 93005; 93010; 99284-25; J7030

== ENCOUNTER 2019-11-20 13:33 | Inpatient (IN) | payer MEDICARE, OTHER ==
[~2019-11-20] VITALS: Ht 152.4 cm; Wt 51.0 kg
[2019-11-20 14:19] LABS: Source, Urine Clean Catch
[2019-11-20 14:24] LABS: BASOPHILS ABSOLUTE AUTO 0.05 K/mm3 (0.00-0.23); BASOPHILS PERCENT AUTO 1 % (0-2); EOSINOPHILS ABSOLUTE AUTO 0.44 K/mm3 (0.00-0.68); EOSINOPHILS PERCENT AUTO 6 % (0-6); Hematocrit 28.1 % (33.0-51.0); Hemoglobin 8.4 g/dL (11.5-16.0); IMMATURE GRAN ABSOLUTE AUTO 0.12 K/mm3 (0.00-0.10); IMMATURE GRAN PERCENT AUTO 2 % (0-1); LYMPHOCYTES ABSOLUTE AUTO 1.56 K/mm3 (0.84-5.20); LYMPHOCYTES PERCENT AUTO 21 % (21-46); MONOCYTES ABSOLUTE AUTO 0.63 K/mm3 (0.16-1.47); MONOCYTES PERCENT AUTO 8 % (4-13); Mean Corpuscular HGB 29.1 pg (26.0-34.0); Mean Corpuscular HGB Conc 29.9 g/dL (31.5-36.5); Mean Corpuscular Volume 97 fL (80-100); NEUTROPHILS PERCENT AUTO 63 % (41-73); Platelet Count 363 K/mm3 (150-400); RDW Coefficient Variation 15.4 % (11.7-14.2); RDW Standard Deviation 54.4 fL (35.1-46.3); Red Blood Cell Count 2.89 M/mm3 (3.80-5.20)
[2019-11-20 14:30] LABS: International Normalized Ratio 1.05; Prothrombin Time Results 11.2 Sec (9.7-11.5)
[2019-11-20 14:32] LABS: Bilirubin, Urine Neg (Neg); Blood, Urine Neg (Neg); Glucose Qualitative, Urine Neg (Neg); Ketones, Urine Neg (Neg); Leukocyte Esterase, Urine Neg (Neg); Nitrite, Urine Neg (Neg); Protein, Urine 2+ (Neg); Specific Gravity, Urine 1.015 (1.003-1.022); Urobilinogen, Urine NORM (Normal)
[2019-11-20 14:47] LABS: Appearance, Urine Clear (Clear); Color, Urine Yellow (P-Yellow)
[2019-11-20 14:52] LABS: Red Blood Cells, Urine Not Seen /hpf (0-2)
[2019-11-20 14:53] LABS: Bacteria Few /hpf; Squamous Epithelial Cells Mod /hpf (Few)
[2019-11-20 14:54] LABS: White Blood Cells, Urine 0-2 /hpf (0-5)
[2019-11-20 16:15] LABS: Albumin, Blood 3.1 g/dL (3.4-5.0); Albumin/Globulin Ratio 0.9 (0.8-1.8); Bilirubin, Total 0.2 mg/dL (0.1-1.0); Bun/Creatinine Ratio 20.3 (12.0-20.0); Calcium, Blood 9.1 mg/dL (8.5-10.1); Creatinine, Blood 1.72 mg/dL (0.40-1.00); Globulin, Blood 3.5 g/dL (2.2-4.0); Potassium, Blood 5.2 mmol/L (3.5-5.5); Total Protein, Blood 6.6 g/dL (6.4-8.2)
[2019-11-20] MEDS ORDERED: HYDRA25 PO (16:24)
--- NOTE | 2019-11-20 19:00 | NUR ---
PT ARRIVES TO UNIT AT 1806 FROM ED VIA GURNEY. PT A&OX 4 ON ARRIVAL. ANSWERS QUESTIONS APPROPRIATELY. RECENT ADMIT FOR GI BLEED AND HX OF RECENT STENT PLACEMENT. PT STATES SHE WAS IN RADIOLOGY FOR U/S AND REFERRED TO ER FOR BRADYCARDIA. PT REPORTS INTERMITTANT ABD PAIN AND DARK STOOLS. STATES SHE THINKS THIS D/T IRON SUPPLEMENTS. PT P/W/D. HTN NOTED. PT HR 40'S, SB. PT DENIES CHEST PAIN OR SOB. WILL REPORT TO ONCOMING NURSE.
[2019-11-20 20:08] LABS: Hematocrit 30.4 % (33.0-51.0); Hemoglobin 8.9 g/dL (11.5-16.0)
--- NOTE | 2019-11-20 21:39 | NUR ---
ASSUMED CARE OF PT AT 1900. BEDSIDE REPORT PERFORMED. PT PARTICIPATED IN DISCUSION, IN PLEASANT MOOD. DISCUSSED PLAN OF CARE, UPDATING PATIENT. I TRACE PERFORMED, FLUIDS REDUCED TO KVO TO RUN WITH PROTONIX GTT. PT UP TO BEDSIDE COMMODE TWICE IN SHORT TIME, BLADDER SCAN PERFORMED. POST VOID RESIDUAL IS [phone].
--- NOTE | 2019-11-20 22:38 | NUR ---
SPOKE WITH DR. SPIVEY ABOUT PT'S CONTINUED LOW HEART RATE, AND HIGH SBP. ORDERS RECEIVED TO RESTART HOME HYDRALAZINE AND NORVASC, DOSE HYDRALAZINE TONIGHT, NORVASC TO START IN THE AM. UPDATED DR ON PT'S LAST TROPONIN, AND PT'S LACK OF ANY CHEST PAIN. RECEIVED ORDER TO MONITOR NEXT VALUE DRAWN.
[2019-11-21 02:00] LABS: BASOPHILS ABSOLUTE AUTO 0.05 K/mm3 (0.00-0.23); BASOPHILS PERCENT AUTO 1 % (0-2); EOSINOPHILS ABSOLUTE AUTO 0.37 K/mm3 (0.00-0.68); EOSINOPHILS PERCENT AUTO 5 % (0-6); Hematocrit 28.3 % (33.0-51.0); Hemoglobin 8.6 g/dL (11.5-16.0); IMMATURE GRAN ABSOLUTE AUTO 0.11 K/mm3 (0.00-0.10); IMMATURE GRAN PERCENT AUTO 1 % (0-1); LYMPHOCYTES ABSOLUTE AUTO 1.43 K/mm3 (0.84-5.20); LYMPHOCYTES PERCENT AUTO 17 % (21-46); MONOCYTES ABSOLUTE AUTO 0.61 K/mm3 (0.16-1.47); MONOCYTES PERCENT AUTO 7 % (4-13); Mean Corpuscular HGB 28.8 pg (26.0-34.0); Mean Corpuscular HGB Conc 30.4 g/dL (31.5-36.5); Mean Corpuscular Volume 95 fL (80-100); Mean Platelet Volume 9.7 fL (9.1-12.4); NEUTROPHILS ABSOLUTE AUTO 5.64 K/mm3 (1.96-9.15); NEUTROPHILS PERCENT AUTO 69 % (41-73); Platelet Count 339 K/mm3 (150-400); RDW Coefficient Variation 15.3 % (11.7-14.2); RDW Standard Deviation 52.8 fL (35.1-46.3); Red Blood Cell Count 2.99 M/mm3 (3.80-5.20); White Blood Cell Count 8.21 K/mm3 (4.00-11.30)
[2019-11-21 02:23] LABS: Albumin, Blood 2.9 g/dL (3.4-5.0); Anion Gap 6 mmol/L (6-16); Blood Urea Nitrogen 29 mg/dL (8-24); Bun/Creatinine Ratio 17.5 (12.0-20.0); CO2, Blood 24 mmol/L (21-32); Calcium, Blood 8.8 mg/dL (8.5-10.1); Chloride, Blood 112 mmol/L (98-108); Creatinine, Blood 1.66 mg/dL (0.40-1.00); Glomerular Filtration Rate 31 (60-); Glucose, Blood 82 mg/dL (70-99); Phosphorus, Blood 3.7 mg/dL (2.5-4.9); Potassium, Blood 4.8 mmol/L (3.5-5.5); Sodium, Blood 142 mmol/L (136-145)
[2019-11-21 02:25] LABS: Troponin I 0.745 ng/mL (0.000-0.040)
--- NOTE | 2019-11-21 05:52 | NUR ---
Pt up frequently to urinate, but has good output. Pt slept most of evening when care was not being performed. Pt is a standby assist to bedside commode, for line management.
--- NOTE | 2019-11-21 08:00 | NUR ---
Recieved report from Oniel ALEJANDRO. Patient resting in bed and awakens to verbal stimuli. She is on RA and sats mid 90%'s. Her HR SB 40's and has cardiology following her. She is asymptomatic and when getting up to bedside cammode denies and dizziness . She states has ongoing weakness for several days.She has 20ga RAC dressing intact and site WNL's and is infusing Protonixs at 1o ml/hr and NS TKO. She also has 22 ga IV in RW dressing intact and site WNL's and is flushed and SL'd.
[2019-11-21 09:05] LABS: Free Thyroxine 0.76 ng/dL (0.70-1.60)
[2019-11-21 09:07] LABS: Thyroid Stimulating Hormone 35.8 uIU/mL (0.360-4.800)
--- NOTE | 2019-11-21 09:30 | NUR ---
Dr wise here and writing new orders, added lasix and increased Hydralizine to 50mg TID. Patient still asymptomatic with Keith 40's and when getting up several times to cammode.
--- NOTE | 2019-11-21 11:30 | NUR ---
Dr. Thrasher by to see patient and talked about possible pacer for rates in the mid top upper 30's and will talk with Dr Valdez about placement.Systolic low 100' sand HR 35-42. She remains on RA and sats upper 90%'s. She has gotten up to chair for lunch and tolerated well without dizziness and when getting up to cammode.
--- NOTE | 2019-11-21 14:50 | NUR ---
Dr Sanford[ika has been by to consent for Pacer placement in am and started on heart healthy diet and NPO after midnight. Patient asked to go back to bed from [facility] and transfered with SBA. She tolerated abot 50% of diet and stated she was full. She remains on Protonixs.
--- NOTE | 2019-11-21 17:32 | NUR ---
Patient has been resting with intermitent trips to bedside [facility]. She received Chorehexidine bath for pacer in am. HR remains 35-45, sats upper 90% on RA and ssystolics 110-130's. She deneis any pain and or any current needs. She has tolerated Heart Healthy diet about 50%. Patient NPO after midnight and will have pacer placement in am. She continues to be PCU status.
--- NOTE | 2019-11-21 19:33 | NUR ---
CALL TO DR. BOBO: DO GIVE PT'S ASPIRIN TONIGHT.
--- NOTE | 2019-11-22 00:37 | NUR ---
START OF SHIFT NOTE: BEDSIDE REPORT FROM TOMMIE ALEJANDRO. PT A+O x4 AND WATCHING TV AT TIME OF REPORT. VSS. PT C/ HR 40'S-50'S AND HAS BEEN ASYMPTOMATIC DENYING DIZZINESS, SP, NOR SOB EVEN WHEN WITH GETTING UP TO THE BSC. PT AWAKENS EASILY TO RN TO BEDSIDE. PT USING CALL LIGHT APPROPRIATELY. WILL CONTINUE TO MONITOR. CALL LIGHT WITHIN REACH.
[2019-11-22 03:28] LABS: BASOPHILS ABSOLUTE AUTO 0.05 K/mm3 (0.00-0.23); BASOPHILS PERCENT AUTO 1 % (0-2); EOSINOPHILS ABSOLUTE AUTO 0.37 K/mm3 (0.00-0.68); EOSINOPHILS PERCENT AUTO 4 % (0-6); Hemoglobin 8.6 g/dL (11.5-16.0); IMMATURE GRAN ABSOLUTE AUTO 0.05 K/mm3 (0.00-0.10); IMMATURE GRAN PERCENT AUTO 1 % (0-1); LYMPHOCYTES ABSOLUTE AUTO 1.63 K/mm3 (0.84-5.20); LYMPHOCYTES PERCENT AUTO 19 % (21-46); MONOCYTES ABSOLUTE AUTO 0.62 K/mm3 (0.16-1.47); MONOCYTES PERCENT AUTO 7 % (4-13); Mean Corpuscular HGB 28.6 pg (26.0-34.0); Mean Corpuscular HGB Conc 30.7 g/dL (31.5-36.5); Mean Corpuscular Volume 93 fL (80-100); Mean Platelet Volume 9.6 fL (9.1-12.4); NEUTROPHILS ABSOLUTE AUTO 5.71 K/mm3 (1.96-9.15); NEUTROPHILS PERCENT AUTO 68 % (41-73); Platelet Count 320 K/mm3 (150-400); RDW Coefficient Variation 15.4 % (11.7-14.2); Red Blood Cell Count 3.01 M/mm3 (3.80-5.20); White Blood Cell Count 8.43 K/mm3 (4.00-11.30)
[2019-11-22 03:46] LABS: Bun/Creatinine Ratio 14.7 (12.0-20.0); Creatinine, Blood 2.17 mg/dL (0.40-1.00); Potassium, Blood 4.8 mmol/L (3.5-5.5)
--- NOTE | 2019-11-22 06:43 | NUR ---
END OF SHIFT: PT WITH NO EVENTS T/O NOC. VSS C/ BRADAYCARDIA CONTINUING OF HR 40'S-60'S. PT REMAINED ASYMPTOMATIC. ONLY C/O IS, "JUST GETTING IT OVER WITH" (RE: PACEMAKER PLACEMENT). PT USING CALL LIGHT APPROPRIATELY AND IS CONITNUING UP TO BSC W/O DIFFICULTY.
--- NOTE | 2019-11-22 07:51 | NUR ---
Received report from Dayana ALEJANDRO. Patient awake in bed with HOB at30 degrees playing games on her I pad. She is alert and oriented and is able to communicate her needs and denies any current pain. She is on RA and sats 98%. She ahs 2 IV's one 20ga RAC and the other 22ga RW and dressings intact and site WNL's. The 20ga RAC in infusning Protonixsat 10ml/hr and NS at TKO. She up to cammode with SBA and calls appropriately. She is been NPO since midnight and awaiting pacer placement this am.
--- NOTE | 2019-11-22 08:20 | NUR ---
Heart center her picking her up for procedure. VSS see EMR.
--- NOTE | 2019-11-22 12:54 | NUR ---
ASSUMED CARE / RETURN FROM HEART CENTER: REPORT RECEIVED FROM TOMMIE Cantrell RN. WILL ASSUME CARE OF THIS PT ONCE RETURNED FROM PACER PLACEMENT SURGERY. PT BACK TO ROOM AT APPROX 1120. SHE HAS RECEIVED A DUAL CHAMBER PACER & MONITOR IS CURRENTLY SHOWING A-PACED RHYTHM W/ RATE OF [address] TO L CHEST WALL & ARM SLING IN PLACE. PT HYPERTENSIVE ON ARRIVAL BUT BP HAS IMPROVED. PT SITTING UP IN BED TOLERATING PO INTAKE W/O DIFFICULTY. SHE HAS C/O PAIN TO SURGICAL SITE, TYLENOL PER EMAR & REST ENCOURAGED. WILL CALL PROVIDER FOR FURTHER ORDERS IF PAIN NOT RESOLVED.
--- NOTE | 2019-11-22 13:51 | NUR ---
DR CORDERO: THIS PROVIDER IS NOW COVERING THE PT's HOSPITALIST CARE. CONTACTED HIM REGARDING PT's C/O PAIN THAT TYLENOL IS NOT RELIEVED BY TYLENOL. HE STS HE WILL REVIEW THE CHART & PLACE ORDERS.
--- NOTE | 2019-11-22 17:05 | NUR ---
ASSUMED CARE OF PT AT 1543. A&O X 3, PLEASANT. PRESSURE DRESSING ON L UPPER CHEST IS INTACT, NO DRAINAGE; ARM IS IN SLING. STATED PAIN IS "OK LONG I DON'T MOVE IT." PACED RHYTHM. ON ROOM AIR, O2 SAT > 95%, LUNGS CLEAR. EDUCATED PT TO CALL FOR BRP, AND NOT TO USE L ARM AT ALL; VERBALIZED UNDERSTANDING.
--- NOTE | 2019-11-22 17:56 | NUR ---
SHIFT SUMMARY: PT A&O, PLEASANT. VSS, PACED RHYTHM, RATE 60. ON RA, O2 SAT 95%, NO COUGH. GETTING UP TO BSC WITH MAX ASSISTANCE. PRESSURE DRESSING REMAINS INTACT. C/O PAIN IN ADEEL CHEST; HAS FENTANYL AND TYLENOL ORDERED. PLAN IS POSSIBLE D/C HOME TOMORROW.
--- NOTE | 2019-11-22 23:02 | NUR ---
ASSUMED CARE OF PATIENT AT APPROXIMATELY 2004 FROM ROSELINE Sharma RN. PATIENT WAS RECENTLY TRANSFERRED FROM ICU. PATIENT ALERT AND ORIENTED X4; FORGETFUL AT TIMES; NEEDS REMINDED AT TIMES NOT TO USE LEFT ARM. PATIENT S/P PACEMAKER TODAY; SITE C/D/I; COVERED WITH GEORGES WRAP; SLING IN PLACE TO LEFT ARM. PATIENT DENIES PAIN, NUMBNESS, TINGLING, DIZZINESS OR NAUSEA. 100% PACED ON TELE; OXYGEN SATURATION ABOVE 90% ON ROOM AIR. CALL PLACED TO DR. MADDEN AT [facility] TO REQUEST DIET; PATIENT NPO SINCE DINNER FOR PACEMAKER; CARDIAC DIET STARTED. PATIENT WAS ALSO RECIEVING PROTONIX GTT; GI SIGNED OFF 11/20; ORDERS FOR HOME DOSE OF PROTONIX; PROTONIX GTT D/C'D. PATIENT ONE ASSIST TO BATHROOM TO URINATE. PATIENT CURRENTLY RESTING IN BED; CALL LIGHT IN REACH; BED IN LOWEST POSISTION; BED ALARM ON; WILL CONTINUE TO MONITOR AND ASSESS UNTIL END OF SHIFT.
[2019-11-23 04:02] LABS: BASOPHILS ABSOLUTE AUTO 0.05 K/mm3 (0.00-0.23); BASOPHILS PERCENT AUTO 1 % (0-2); EOSINOPHILS ABSOLUTE AUTO 0.41 K/mm3 (0.00-0.68); EOSINOPHILS PERCENT AUTO 4 % (0-6); Hematocrit 28.7 % (33.0-51.0); Hemoglobin 8.9 g/dL (11.5-16.0); IMMATURE GRAN ABSOLUTE AUTO 0.05 K/mm3 (0.00-0.10); IMMATURE GRAN PERCENT AUTO 1 % (0-1); LYMPHOCYTES ABSOLUTE AUTO 1.23 K/mm3 (0.84-5.20); LYMPHOCYTES PERCENT AUTO 12 % (21-46); MONOCYTES ABSOLUTE AUTO 0.76 K/mm3 (0.16-1.47); MONOCYTES PERCENT AUTO 8 % (4-13); Mean Corpuscular HGB 28.9 pg (26.0-34.0); Mean Corpuscular Volume 93 fL (80-100); Mean Platelet Volume 10.1 fL (9.1-12.4); NEUTROPHILS ABSOLUTE AUTO 7.52 K/mm3 (1.96-9.15); NEUTROPHILS PERCENT AUTO 75 % (41-73); Platelet Count 292 K/mm3 (150-400); RDW Coefficient Variation 15.3 % (11.7-14.2); RDW Standard Deviation 50.9 fL (35.1-46.3); Red Blood Cell Count 3.08 M/mm3 (3.80-5.20); White Blood Cell Count 10.02 K/mm3 (4.00-11.30)
[2019-11-23 04:26] LABS: Bun/Creatinine Ratio 14.4 (12.0-20.0); Calcium, Blood 8.6 mg/dL (8.5-10.1); Creatinine, Blood 2.02 mg/dL (0.40-1.00); Potassium, Blood 4.4 mmol/L (3.5-5.5)
--- NOTE | 2019-11-23 06:45 | NUR ---
NO ACUTE CHANGES TO REPORT. PATIENT SLEPT ABOUT SEVEN HOURS LAST NIGHT; PATIENT REPORTS SHE DID NOT SLEEP; READY TO GO HOME. VSS. WILL CONTINUE TO MONITOR AND ASSESS UNTIL END OF SHIFT.
--- NOTE | 2019-11-23 08:34 | NUR ---
The pt this morning is c/o soreness and aching on the left chest wall incision area. Tylenol was given for relief. She had her chest x ray as well as device interrogation this morning. She has no other complaints this morning. Showing 100% paced on telemetry monitoring, 60 bpm. Sitting up in bed, eating her breakfast without any voiced nor apparent difficulty.
== END 2019-11-23 14:51 | disposition home or self-care (01) | DRG 243 ==
LOC: ER 13:33 → ICUW 17:14 → PCU 11-22 19:45
PROVIDERS: Emergency Medicine; Hospitalist; Physician Assistant; ADMIT Family Medicine
PROC: 02H63JZ Insertion of Pacemaker Lead into Right Atrium, Percutaneous Approach (ICD-10-PCS; principal; 2019-11-22)
PROC: 0JH606Z Insertion of Pacemaker, Dual Chamber into Chest Subcutaneous Tissue and Fascia, Open Approach (ICD-10-PCS; 2019-11-22)
PROC: 02HK3JZ Insertion of Pacemaker Lead into Right Ventricle, Percutaneous Approach (ICD-10-PCS; 2019-11-22)
DX: I49.5 Sick sinus syndrome (principal); N17.9 Acute kidney failure, unspecified; I13.0 Hypertensive heart and chronic kidney disease with heart failure and stage 1 through stage 4 chronic kidney disease, or unspecified chronic kidney disease; I50.32 Chronic diastolic (congestive) heart failure; K92.2 Gastrointestinal hemorrhage, unspecified; I73.9 Peripheral vascular disease, unspecified; E03.9 Hypothyroidism, unspecified; N18.3 Chronic kidney disease, stage 3 (moderate); I25.10 Atherosclerotic heart disease of native coronary artery without angina pectoris; E78.5 Hyperlipidemia, unspecified; J44.9 Chronic obstructive pulmonary disease, unspecified; Z87.891 Personal history of nicotine dependence; Z66 Do not resuscitate; Z95.5 Presence of coronary angioplasty implant and graft; Z85.51 Personal history of malignant neoplasm of bladder; D63.8 Anemia in other chronic diseases classified elsewhere
CPT/HCPCS: 33208; 33228; 36415; 71045; 71046; 74176; 80048; 80053; 80069; 81001; 82272; 83690; 83880; 84439; 84443; 84484; 85014; 85018; 85025; 85610; 85730; 86850; 86900; 86901; 86923; 87086; 90686; 93005; 93010; 93308; 93321; 93922; 96361; 96374; 96376; 99152; 99153; 99285-25; A9270; A9270-GY; C1785; C1898; C9113; G0008; J0360; J0690; J1644; J2250; J3010; J7030; J7040; J7050; P9612

== ENCOUNTER → 2020-01-09 | Outpatient (CLI) | payer MEDICARE ==
[2020-01-12 11:35] LABS: Bun/Creatinine Ratio 20.1 (12.0-20.0); Calcium, Blood 8.6 mg/dL (8.5-10.1); Creatinine, Blood 1.34 mg/dL (0.40-1.00); Potassium, Blood 5.1 mmol/L (3.5-5.5)
== END ==
LOC: LAB SHORT 18:35 → LAB 18:35
PROVIDERS: Family Medicine
DX: R60.0 Localized edema (principal)
CPT/HCPCS: 80048

== ENCOUNTER → 2020-01-15 | Outpatient (CLI) | payer MEDICARE ==
[2020-01-15 20:13] LABS: BASOPHILS ABSOLUTE AUTO 0.04 K/mm3 (0.00-0.23); BASOPHILS PERCENT AUTO 1 % (0-2); EOSINOPHILS ABSOLUTE AUTO 0.29 K/mm3 (0.00-0.68); EOSINOPHILS PERCENT AUTO 5 % (0-6); Hematocrit 27.3 % (33.0-51.0); Hemoglobin 9.5 g/dL (11.5-16.0); IMMATURE GRAN ABSOLUTE AUTO 0.02 K/mm3 (0.00-0.10); IMMATURE GRAN PERCENT AUTO 0 % (0-1); LYMPHOCYTES ABSOLUTE AUTO 1.38 K/mm3 (0.84-5.20); LYMPHOCYTES PERCENT AUTO 22 % (21-46); MONOCYTES ABSOLUTE AUTO 0.52 K/mm3 (0.16-1.47); MONOCYTES PERCENT AUTO 9 % (4-13); Mean Corpuscular HGB 33.2 pg (26.0-34.0); Mean Corpuscular HGB Conc 34.8 g/dL (31.5-36.5); Mean Corpuscular Volume 96 fL (80-100); Mean Platelet Volume 10.2 fL (9.1-12.4); NEUTROPHILS PERCENT AUTO 63 % (41-73); Platelet Count 303 K/mm3 (150-400); RDW Coefficient Variation 15.4 % (11.7-14.2); RDW Standard Deviation 52.3 fL (35.1-46.3); Red Blood Cell Count 2.86 M/mm3 (3.80-5.20); White Blood Cell Count 6.15 K/mm3 (4.00-11.30)
[2020-01-15 20:28] LABS: Bun/Creatinine Ratio 22.3 (12.0-20.0); Calcium, Blood 9.6 mg/dL (8.5-10.1); Creatinine, Blood 1.84 mg/dL (0.40-1.00); Potassium, Blood 3.8 mmol/L (3.5-5.5)
== END | disposition home or self-care (01) ==
LOC: LAB 19:40 → LAB SHORT 19:40
PROVIDERS: Physician Assistant
DX: D64.9 Anemia, unspecified (principal); R60.0 Localized edema
CPT/HCPCS: 80048; 85025

== ENCOUNTER → 2020-07-01 | Outpatient (CLI) | payer MEDICARE | LOC: LAB SHORT 15:38 → LAB UCHC 15:38 | DX: N39.0 Urinary tract infection, site not specified (principal) | CPT/HCPCS: 87077; 87086; 87186 ==

== ENCOUNTER 2020-12-03 09:59 | Day surgery (SDC) | payer MEDICARE ==
[~2020-12-03] VITALS: Ht 149.9 cm; Wt 54.7 kg
[2020-12-03] MEDS ORDERED: CARV6.25 PO (10:27)
[2020-12-03] MEDS ORDERED: FURO80 PO (10:29)
[2020-12-03] MEDS ORDERED: POTA8 PO (10:29)
[2020-12-03] MEDS ORDERED: FLUO10 PO (10:30)
--- NOTE | 2020-12-03 11:16 | NUR ---
12/03/20 Chelsea Clement PT TOOK PLAVIX UP TO AND INCLUDING YESTERDAY, 12/02/20. INFORMED AND WILL SPEAK TO THE PT REGARDING THE FACT IF WE DO THE PROCEDURE TODAY AND SHE HAS POLYPS WE CANNOT REMOVE THEM DUE TO THE RECENT PLAVIX.
--- NOTE | 2020-12-03 11:42 | NUR ---
12/03/20 1142 Chelsea Edwards SCOPE CHANGED FROM PURPLE TO GREEN AND WHITE NEEDED A PEDS SCOPE.
== END 2020-12-03 12:42 | disposition home or self-care (01) ==
LOC: ORSCSDS 09:59
PROVIDERS: Internal Medicine Gastroenterology
PROC: 0DBK8ZX Excision of Ascending Colon, Via Natural or Artificial Opening Endoscopic, Diagnostic (ICD-10-PCS; principal; 2020-12-03 11:15)
DX: Z12.11 Encounter for screening for malignant neoplasm of colon (principal); Z86.010 Personal history of colon polyps; D12.2 Benign neoplasm of ascending colon; K57.30 Diverticulosis of large intestine without perforation or abscess without bleeding; K64.4 Residual hemorrhoidal skin tags; Z79.01 Long term (current) use of anticoagulants; F17.210 Nicotine dependence, cigarettes, uncomplicated; J44.9 Chronic obstructive pulmonary disease, unspecified
CPT/HCPCS: 88305; J2704; J7120